=== PATIENT | male | born 1945 | race Caucasian/White ===

== ENCOUNTER 2016-11-05 18:18 | Emergency (ER) | payer MEDICARE, BC ==
[~2016-11-05] VITALS: Ht 177.8 cm; Wt 117.3 kg
[2016-11-05] MEDS ORDERED: SILVER SULF. CRM 1% , 25GM ONE (19:19)
[2016-11-05] MEDS ORDERED: SILVER SULF. CRM 1% , 25GM TP ONE (19:30)
[2016-11-05 20:06] VITALS: BP 138/84
== END 2016-11-05 20:09 | disposition home or self-care (01) ==
LOC: ED 20:03
DX: T25.212A Burn of second degree of left ankle, initial encounter (principal); T23.132A Burn of first degree of multiple left fingers (nail), not including thumb, initial encounter; I10 Essential (primary) hypertension; X08.8XXA Exposure to other specified smoke, fire and flames, initial encounter; T31.0 Burns involving less than 10% of body surface; Y93.89 Activity, other specified; Y92.89 Other specified places as the place of occurrence of the external cause; Y99.8 Other external cause status
CPT/HCPCS: 16020

== ENCOUNTER → 2019-05-22 | Outpatient (CLI) | payer MEDICARE, BC ==
[~2019-05-22] MED LIST: METOPROLOL 1 MG/ML, 5ML ONE; VISIPAQUE 320 MG/ML, 150ML BOTTLE ONE
== END | disposition home or self-care (01) ==
LOC: RAD 10:20
PROVIDERS: ATTEND Internal Medicine Cardiovascular Disease
DX: K76.0 Fatty (change of) liver, not elsewhere classified (principal); I71.2 Thoracic aortic aneurysm, without rupture; I70.0 Atherosclerosis of aorta; I25.10 Atherosclerotic heart disease of native coronary artery without angina pectoris; M51.34 Other intervertebral disc degeneration, thoracic region
CPT/HCPCS: 71275; 74174; 94010; 94726; 94729; Q9967

== ENCOUNTER 2019-05-30 22:16 | Emergency (ER) | payer MEDICARE, BC ==
[~2019-05-30] VITALS: Ht 177.8 cm; Wt 110.6 kg
[~2019-05-30 22:16] MED LIST changes: +ASPI81TA45 PO; +ATOR20TA37 PO; +CLOP75TA PO; +ENAL20TA PO; +LEVO150T5 PO; +METO25TA35 PO; -METOPROLOL 1 MG/ML, 5ML ONE; -VISIPAQUE 320 MG/ML, 150ML BOTTLE ONE
[2019-05-30 22:58] VITALS: BP 134/61
--- NOTE | 2019-05-30 22:58 | NUR ---
PT TO ED X2 DAYS AGO POST TAVR PROCEDURE. PT REPORTS BRUISING NEAR SITE, ON SCROTUM AND ACROSS LLQ. PT DENIES ANY PAIN OR OTHER C/O AT THIS TIME.
[2019-05-30 23:17] LABS: BASOPHILS # (AUTO) 0.07 x10^3/uL (0-0.1); BASOPHILS % (AUTO) 1 % (0-1); EOSINOPHILS # (AUTO) 0.07 x10^3/uL (0-0.4); EOSINOPHILS % (AUTO) 1 % (1-7); LYMPHOCYTES # (AUTO) 1.71 x10^3/uL (1-3.4); LYMPHOCYTES % (AUTO) 20 % (22-44); MD NO; MEAN CORPUSCULAR HEMOGLOBIN 29.7 pg (27.5-34.5); MEAN CORPUSCULAR HGB CONC 32.9 g/dL (33.2-36.2); MEAN CORPUSCULAR VOLUME 90.3 fL (81-97); MEAN PLATELET VOLUME 8.7 fL (7.4-10.4); MONOCYTES # (AUTO) 1.07 x10^3/uL (0.2-0.8); MONOCYTES % (AUTO) 13 % (2-9); NEUTROPHILS % (AUTO) 65 % (42-75); PLATELET COUNT 176 x10^3/uL (130-400); RED BLOOD COUNT 4.01 x10^6/uL (4.38-5.82); RED CELL DISTRIBUTION WIDTH 14.4 % (9.4-14.8)
[2019-05-30 23:27] LABS: ANION GAP 8 mmol/L (5-15); CALCIUM 8.1 mg/dL (8.5-10.1); CHLORIDE 107 mmol/L (98-107)
--- NOTE | 2019-05-31 00:08 | NUR ---
PT NEED IV FOR CTA. STARTED 20G IN LEFT AC. SENT PT BACK TO ER WITH IV.
[2019-05-31] MEDS ORDERED: OMNIPAQUE 350 MG/ML, 100ML BOTTLE ONE (00:14)
--- NOTE | 2019-05-31 01:10 | NUR ---
TASK RN: DC EDUCATION PROVIDED, PT DEMONSTRATES UNDERSTANDING. PT AMBULATED STEADILY TO DC WITH RN.
== END 2019-05-31 01:12 | disposition home or self-care (01) ==
LOC: ED 05-31 00:18
DX: S30.1XXA Contusion of abdominal wall, initial encounter (principal); S30.22XA Contusion of scrotum and testes, initial encounter; S70.12XA Contusion of left thigh, initial encounter; I10 Essential (primary) hypertension; E07.9 Disorder of thyroid, unspecified; X58.XXXA Exposure to other specified factors, initial encounter; Y93.89 Activity, other specified; Y92.89 Other specified places as the place of occurrence of the external cause; Y99.8 Other external cause status
CPT/HCPCS: 36415; 73706; 80048; 82040; 85025; 99285; Q9967

== ENCOUNTER → 2020-05-25 | Outpatient (CLI) | payer MEDICARE, BC ==
[~2020-05-25] MED LIST changes: -ENAL20TA PO; +ENAL20TA9 PO
== END | disposition home or self-care (01) ==
LOC: CVU 12:45
PROVIDERS: ATTEND Internal Medicine Cardiovascular Disease
DX: Z01.810 Encounter for preprocedural cardiovascular examination (principal); I34.0 Nonrheumatic mitral (valve) insufficiency; R06.02 Shortness of breath; I65.29 Occlusion and stenosis of unspecified carotid artery
CPT/HCPCS: 93306